=== PATIENT | female | born 1960 | race Caucasian/White ===

== ENCOUNTER 2018-03-27 05:35 | Outpatient (CLI) | payer BC ==
[~2018-03-27] VITALS: Ht 170.2 cm; Wt 72.6 kg
[~2018-03-27 05:35] MED LIST: ASP325TEC PO; CARI350T27 PO; CEFD300C16 PO; CEFD300C3 PO; CRS350T PO; ESTERIFIED ESTROGENS PO; ESTR-19 PO; ESTROGEN; FLC100T1 PO; GABA800T2; LEVO750T24 PO; LISI1TAB PO; LISINIPRIL; LVT.025T PO; LVT.15T PO; METF500T8 PO; METHYLTESTOSTERONE PO; ONDN4T PO; OX05NA15; OXC5T PO; PRD20T PO; THYROID MED; TRAM50TA2 PO
[2018-03-27] MEDS ORDERED: METF850T2 PO (15:32)
[2018-03-27] MEDS ORDERED: LISI10TA2 PO (15:32)
[2018-03-27] MEDS ORDERED: OXYC-529 PO (15:32)
[2018-03-27] MEDS ORDERED: ESTR-19 PO (15:32)
[2018-03-27] MEDS ORDERED: DIAZ5TAB3 PO (15:32)
== END 2018-03-27 15:33 | disposition home or self-care (01) ==
LOC: PREOP 05:35
PROVIDERS: ATTEND Surgery
DX: Z01.818 Encounter for other preprocedural examination (principal)

== ENCOUNTER 2018-08-25 21:24 | Emergency (ER) | payer BC ==
[~2018-08-25] VITALS: Ht 170.2 cm; Wt 77.1 kg
[~2018-08-25 21:24] MED LIST changes: +DIAZ5TAB3 PO; +LISI10TA2 PO; +METF-398 PO; +OXYC-529 PO
--- OUTSIDE RECORDS SUMMARY | 2018-08-25 21:31 | XMS REPORT | Continuity of Care Document ---
Author Author [facility] Organization [facility] Address Unknown Phone Unavailable Allergies Active Description Code Type Severity Reaction Onset Reported/Identified Relationship to Patient Clinical Status Yes codeine [id number] Drug Allergy Mild NAUSEA 08/13/2012 Medications There is no data. Problems Date Dx Coded Attending Type Code Diagnosis Diagnosed By 08/14/2012 Ot 244.9 HYPOTHYROIDISM NOS 08/14/2012 Ot 250.00 DIAB MARIPOSA WO COMPL, TYPE II OR UNSPEC TY 08/14/2012 Ot 276.1 HYPOSMOLALITY 08/14/2012 Ot 276.8 HYPOPOTASSEMIA 08/14/2012 Ot 401.9 HYPERTENSION NOS 08/14/2012 Ot 590.10 AC PYELONEPHRITIS NOS 08/14/2012 Ot 722.52 LUMB/ LUMBOSAC DISC DEGEN 08/14/2012 Ot 784.0 HEADACHE 08/28/2012 Ot 041.19 BACTERIAL INFECTION DUE TO OTHER STAPHYL 08/28/2012 Ot 079.99 VIRAL INFECTION NOS 08/28/2012 Ot 250.00 DIAB MARIPOSA WO COMPL, TYPE II OR UNSPEC TY 08/28/2012 Ot 401.9 HYPERTENSION NOS 08/28/2012 Ot 599.0 URIN TRACT INFECTION NOS 08/28/2012 Ot 726.90 ENTHESOPATHY , SITE NOS 08/28/2012 Ot 786.52 PAINFUL RESPIRATION 08/28/2012 Ot E930.8 ADV EFF ANTIBIOTICS NEC 10/13/2014 RHIANNON MCGINNIS Ot 461.9 ACUTE SINUSITIS NOS 10/13/2014 RHIANNON MCGINNIS Ot 784.0 HEADACHE 08/11/2015 RIKKI BUSTILLO, BRITTANY Martínez Ot Z12.31 01/14/2018 FERNANDO CESPEDES Ot 786.2 COUGH 01/14/2018 NEIL DOMINGUEZ DO Ot V76.12 OTH SCREEN MAMMO-MALIGN NEOPLASM OF [place]AN[place] 01/14/2018 BRITTANY BRANDT MD Ot Z12.31 ENCNTR SCREEN MAMMOGRAM FOR MALIGNANT NE 03/27/2018 ALECIAJAZMINEFERNANDO GUTIERREZ SOLID PLASTERER Ot 786.2 COUGH 03/27/2018 NEIL DOMINGUEZ DO Ot V76.12 OTH SCREEN MAMMO-MALIGN NEOPLASM OF [place]AN[place] 03/27/2018 RIKKI BUSTILLO, BRITTANY Martínez Ot Z12.31 ENCNTR SCREEN MAMMOGRAM FOR MALIGNANT NE 03/27/2018 DEIDRA ORTIZ DO Ot Z01.818 ENCOUNTER FOR OTHER PREPROCEDURAL EXAMIN 03/27/2018 ORTIZ DEIDRA YOON Ot Z01.818 ENCOUNTER FOR OTHER PREPROCEDURAL EXAMIN 03/27/2018 MIDDLETON DEIDRA YOON Ot Z01.818 ENCOUNTER FOR OTHER PREPROCEDURAL EXAMIN 04/03/2018 DEIDRA ORTIZ DO Ot D12.4 BENIGN NEOPLASM OF DESCENDING COLON 04/03/2018 DEIDRA ORTIZ DO Ot D12.5 BENIGN NEOPLASM OF SIGMOID COLON 04/03/2018 DEIDRA ORTIZ DO Ot I10 ESSENTIAL (PRIMARY) HYPERTENSION 04/03/2018 DEIDRA ORTIZ DO Ot K62.1 RECTAL POLYP 04/03/2018 DEIDRA ORTIZ DO Ot R73.03 PREDIABETES 04/03/2018 DEIDRA ORTIZ DO Ot Z12.11 ENCOUNTER FOR SCREENING FOR MALIGNANT NE 04/03/2018 DEIDRA ORTIZ DO Ot Z79.84 [facility] (CURRENT) USE OF ORAL HYPOGLYC 04/03/2018 DEIDRA ORTIZ DO Ot Z79.899 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 04/03/2018 DEIDRA ORTIZ DO Ot Z80.0 FAMILY HISTORY OF MALIGNANT NEOPLASM OF 04/09/2018 DEIDRA ORTIZ DO Ot D12.4 BENIGN NEOPLASM OF DESCENDING COLON 04/09/2018 DEIDRA ORTIZ DO Ot D12.5 BENIGN NEOPLASM OF SIGMOID COLON 04/09/2018 DEIDRA ORTIZ DO Ot I10 ESSENTIAL (PRIMARY) HYPERTENSION 04/09/2018 DEIDRA ORTIZ DO Ot K62.1 RECTAL POLYP 04/09/2018 DEIDRA ORTIZ DO Ot R73.03 PREDIABETES 04/09/2018 DEIDRA ORTIZ DO Ot Z12.11 ENCOUNTER FOR SCREENING FOR MALIGNANT NE 04/09/2018 DEIDRA ORTIZ DO Ot Z79.84 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 Results There is no data. Encounters ACCT No. Visit Date/Time Discharge Status Pt. Type Provider Facility Loc./Unit Complaint [id number] 04/03/2018 07:12:00 04/03/2018 10:00:00 DIS Outpatient DEIDRA ORTIZ DO [facility] ENDO SCREENING [id number] 03/27/2018 05:35:00 03/27/2018 15:33:00 DIS Outpatient DEIDRA ORTIZ DO [facility] PREOP COLONOSCOPY [id number] 07/28/2015 12:07:00 07/28/2015 23:59:59 CLS Outpatient BRITTANY BRANDT MD [facility] RAD SCREENING [id number] 10/13/2014 10:58:00 10/13/2014 15:50:00 DIS Emergency RHIANNON MCGINNIS [facility] ER SINUS PAIN PRESSURE [id number] 12/25/2013 14:40:00 12/25/2013 23:59:59 CLS Outpatient NEIL DOMINGUEZ DO [facility] RAD SCREENING [id number] 09/09/2013 11:48:00 09/09/2013 23:59:59 CLS Outpatient FERNANDO CESPEDES [facility] RAD COUGH [id number] 08/26/2012 03:55:00 Document Registration [id number] 08/13/2012 09:39:00 Document Registration
[2018-08-25] MEDS ORDERED: LACTATED RINGERS 1,000 ML IV ONE (21:33)
[2018-08-25 21:58] LABS: BASOPHILS # (AUTO) 0.1 10^3/uL (0.0-0.1); BASOPHILS % (AUTO) 1 % (0-10); EOSINOPHILS # (AUTO) 0.1 10^3/uL (0.0-0.3); EOSINOPHILS % (AUTO) 1 % (0-10); HEMATOCRIT 41 % (35-52); HEMOGLOBIN 13.5 G/DL (11.5-16.0); LYMPHOCYTES # (AUTO) 3.3 X 10^3 (1.0-4.0); LYMPHOCYTES % (AUTO) 35 % (12-44); MEAN CORPUSCULAR HEMOGLOBIN 29 PG (25-34); MEAN CORPUSCULAR HGB CONC 33 G/DL (32-36); MEAN CORPUSCULAR VOLUME 88 FL (80-99); MEAN PLATELET VOLUME 9.3 FL (7.4-10.4); MONOCYTES # (AUTO) 0.6 X 10^3 (0.0-1.0); MONOCYTES % (AUTO) 6 % (0-12); NEUTROPHILS # (AUTO) 5.4 X 10^3 (1.8-7.8); NEUTROPHILS % (AUTO) 57 % (42-75); PLATELET COUNT 346 10^3/uL (130-400); RED BLOOD COUNT 4.68 10^6/uL (4.35-5.85); RED CELL DISTRIBUTION WIDTH 12.7 % (10.0-14.5); WHITE BLOOD COUNT 9.5 10^3/uL (4.3-11.0)
[2018-08-25 22:04] VITALS: BP_SYST 117; BP_SYST 121; BP_SYST 125; BP_DIAS 70; BP_DIAS 72; BP_DIAS 78
[2018-08-25 22:05] LABS: BILIRUBIN,URINE NEGATIVE (NEGATIVE); CLARITY,URINE CLEAR; COLOR,URINE YELLOW; GLUCOSE, URINE (UA) NEGATIVE (NEGATIVE); KETONES,URINE NEGATIVE (NEGATIVE); LEUKOCYTE ESTERASE ,URINE NEGATIVE (NEGATIVE); NITRITE,URINE NEGATIVE (NEGATIVE); PH,URINE 5 (5-9); PROTEIN,URINE 2+ (NEGATIVE); UROBILINOGEN,URINE NORMAL (NORMAL)
[2018-08-25 22:07] LABS: PROTHROMBIN TIME PATIENT 12.9 SEC (12.2-14.7)
[2018-08-25 22:16] LABS: AMPHETAMINE SCREEN, URINE NEGATIVE (NEGATIVE); BARBITURATE SCREEN URINE NEGATIVE (NEGATIVE); BENZODIAZEPINES SCREEN URINE NEGATIVE (NEGATIVE); CANNABINOID SCREEN, URINE POSITIVE (NEGATIVE); COCAINE SCREEN URINE NEGATIVE (NEGATIVE); METHADONE STAT NEGATIVE (NEGATIVE); METHAMPHETAMINE SCREEN URINE S NEGATIVE (NEGATIVE); OPIATE SCREEN URINE NEGATIVE (NEGATIVE); OXYCODONE STAT POSITIVE (NEGATIVE); PROPOXYPHENE STAT NEGATIVE (NEGATIVE); TRICYCLIC ANTIDEPRESSANTS SCRE POSITIVE (NEGATIVE)
[2018-08-25 22:19] LABS: ALANINE AMINOTRANSFERASE 32 U/L (0-55); ALBUMIN 4.9 GM/DL (3.2-4.5); ALKALINE PHOSPHATASE 47 U/L (40-136); BILIRUBIN,TOTAL 1.3 MG/DL (0.1-1.0); BUN/CREATININE RATIO 7; CALCIUM 9.9 MG/DL (8.5-10.1); CARBON DIOXIDE 25 MMOL/L (21-32); CHLORIDE 99 MMOL/L (98-107); CREATININE SERUM 0.99 MG/DL (0.60-1.30); GFR ESTIMATED 58; GLUCOSE 144 MG/DL (70-105); MAGNESIUM 2.1 MG/DL (1.8-2.4); POTASSIUM 3.4 MMOL/L (3.6-5.0); SODIUM 137 MMOL/L (135-145); TOTAL PROTEIN 7.6 GM/DL (6.4-8.2)
[2018-08-25 22:19] LABS: SQUAMOUS EPITHELIAL CELL,UR 0-2 /HPF
[2018-08-25 22:38] LABS: TSH (THYROID ANALYZER) 6.25 UIU/ML (0.35-4.94)
--- NOTE | 2018-08-25 22:39 | ED Syncope ---
General Chief Complaint: Dizziness/Syncope Stated Complaint: SYNCOPE Nursing Triage Note: Pt brought to ED via EMS. [place] and then passed out into boyfriend's lap. Pt denies hitting head or falling to floor. Pt reports having the flu last week, and has had N/D for a couple of days. Pt A&O x 4 upon arrival to ED. Allergies and Home Medications Allergies Coded Allergies: codeine (Verified Allergy, Mild, NAUSEA, 08/13/12) Home Medications Diazepam 5 Mg Tablet, 5 MG PO Q12H PRN for ANXIETY, (Reported) Estrogen,Kiera/Me-Testosterone 1 Each Tablet, 1 EACH PO DAILY, (Reported) Lisinopril 10 Mg Tablet, 5 MG PO DAILY, (Reported) take 1/2 of 10mg tab Metformin HCl 850 Mg Tablet, 850 MG PO DAILY, (Reported) Oxycodone HCl 5 Mg Tablet, 5 MG PO TID PRN for PAIN-MILD TO MODERATE, (Reported) Past Iwxsxni-Tymikx-Vobdtg Hx Patient Social History Alcohol Use: Occasionally Uses Number of Drinks Today: AA Alcohol Beverage of Choice: Beer Recreational Drug Use: No 2nd Hand Smoke Exposure: No Recent Foreign Travel: No Contact w/Someone Who Travel: No Recent Infectious Disease Expo: No Recent Hopitalizations: No Physical Abuse: No Sexual Abuse: No Immunizations Up To Date Tetanus Booster (TDap): Unknown Seasonal Allergies Seasonal Allergies: No Past Medical History Surgeries: Yes (SPINAL FUSION X2, C/S X2, TUMMY TUCK, BREAST REDUCTION) Appendectomy, Section, Hysterectomy Respiratory: No Currently Using CPAP: No Currently Using BIPAP: No Cardiac: Yes Hypertension Neurological: No Reproductive Disorders: No 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 0.0oz. 77.914278hd; 25.1 BMI Method:Stated Focused Exam Lactate Level 08/25/18 21:45: Lactic Acid Level 2.24*H Lactic Acid Level Laboratory Tests Test 08/25/18 21:45 Lactic Acid Level 2.24 MMOL/L (0.50-2.00) *H Progress/Results/Core Measures Results/Orders Lab Results Laboratory Tests Test 08/25/18 21:45 08/25/18 21:57 08/25/18 22:27 Range/Units White Blood Count 9.5 4.3-11.0 10^3/uL Red Blood Count 4.68 4.35-5.85 10^6/uL Hemoglobin 13.5 11.5-16.0 G/DL Hematocrit 41 35-52 % Mean Corpuscular Volume 88 80-99 FL Mean Corpuscular Hemoglobin 29 25-34 PG Mean Corpuscular Hemoglobin Concent 33 32-36 G/DL Red Cell Distribution Width 12.7 10.0-14.5 % Platelet Count 346 130-400 10^3/uL Mean Platelet Volume 9.3 7.4-10.4 FL Neutrophils (%) (Auto) 57 42-75 % Lymphocytes (%) (Auto) 35 12-44 % Monocytes (%) (Auto) 6 0-12 % Eosinophils (%) (Auto) 1 0-10 % Basophils (%) (Auto) 1 0-10 % Neutrophils # (Auto) 5.4 1.8-7.8 X 10^3 Lymphocytes # (Auto) 3.3 1.0-4.0 X 10^3 Monocytes # (Auto) 0.6 0.0-1.0 X 10^3 Eosinophils # (Auto) 0.1 0.0-0.3 10^3/uL Basophils # (Auto) 0.1 0.0-0.1 10^3/uL Prothrombin Time 12.9 12.2-14.7 SEC INR Comment 1.0 0.8-1.4 Activated Partial Thromboplast Time 30 24-35 SEC Sodium Level 137 135-145 MMOL/L Potassium Level 3.4 L 3.6-5.0 MMOL/L Chloride Level 99 98-107 MMOL/L Carbon Dioxide Level 25 21-32 MMOL/L Anion Gap 13 5-14 MMOL/L Blood Urea Nitrogen 7 7-18 MG/DL Creatinine 0.99 0.60-1.30 MG/DL Estimat Glomerular Filtration Rate 58 BUN/Creatinine Ratio 7 Glucose Level 144 H 70-105 MG/DL Lactic Acid Level 2.24 *H 0.50-2.00 MMOL/L Calcium Level 9.9 8.5-10.1 MG/DL Corrected Calcium 8.5-10.1 MG/DL Magnesium Level 2.1 1.8-2.4 MG/DL Total Bilirubin 1.3 H 0.1-1.0 MG/DL Aspartate Amino Transf (AST/SGOT) 31 5-34 U/L Alanine Aminotransferase (ALT/SGPT) 32 0-55 U/L Alkaline Phosphatase 47 40-136 U/L Troponin I < 0.30 <0.30 NG/ML Total Protein 7.6 6.4-8.2 GM/DL Albumin 4.9 H 3.2-4.5 GM/DL TSH [place] Testing 6.25 H 0.35-4.94 UIU/ML Serum Alcohol < 10 <10 MG/DL Urine Color YELLOW Urine Clarity CLEAR Urine pH 5 5-9 Urine Specific [place] 1.015 L 1.016-1.022 Urine Protein 2+ H NEGATIVE Urine Glucose (UA) NEGATIVE NEGATIVE Urine Ketones NEGATIVE NEGATIVE Urine Nitrite NEGATIVE NEGATIVE Urine Bilirubin NEGATIVE NEGATIVE Urine Urobilinogen NORMAL NORMAL MG/DL Urine Leukocyte Esterase NEGATIVE NEGATIVE Urine RBC (Auto) NEGATIVE NEGATIVE Urine RBC NONE /HPF Urine WBC NONE /HPF Urine Squamous Epithelial Cells 0-2 /HPF Urine Crystals NONE /LPF Urine Bacteria NONE /HPF Urine Casts NONE /LPF Urine Mucus NEGATIVE /LPF Urine Culture Indicated NO Urine Opiates Screen NEGATIVE NEGATIVE Urine Oxycodone Screen POSITIVE H NEGATIVE Urine Methadone Screen NEGATIVE NEGATIVE Urine Propoxyphene Screen NEGATIVE NEGATIVE Urine Barbiturates Screen NEGATIVE NEGATIVE Ur Tricyclic Antidepressants Screen POSITIVE H NEGATIVE Urine Phencyclidine Screen NEGATIVE NEGATIVE Urine Amphetamines Screen NEGATIVE NEGATIVE Urine Methamphetamines Screen NEGATIVE NEGATIVE Urine Benzodiazepines Screen NEGATIVE NEGATIVE Urine Cocaine Screen NEGATIVE NEGATIVE Urine Cannabinoids Screen POSITIVE H NEGATIVE Glucometer 125 H 70-110 MG/DL Micro Results Microbiology 08/25/18 Influenza Types A,B Antigen (JESSICA) - Final, Complete My Orders Orders - JAYMIE HENDRICKS DO Accucheck Stat ONCE (08/25/18 21:33) Saline Lock/Iv-Start (08/25/18 21:33) Ekg Tracing (08/25/18 21:33) Monitor-Rhythm Ecg Trace Only (08/25/18 21:33) Orthostatic Vital Signs (Adult (08/25/18 21:33) Ct Head Wo-R/O Stroke (08/25/18 21:33) Alcohol (08/25/18 21:33) Cbc With Automated Diff (08/25/18 21:33) Comprehensive Metabolic Panel (08/25/18 21:33) Drug Screen Stat (Urine) (08/25/18 21:33) Lactic Acid Analyzer (08/25/18 21:33) Magnesium (08/25/18 21:33) Protime With Inr (08/25/18 21:33) Partial Thromboplastin Time (08/25/18 21:33) Thyroid Analyzer (08/25/18 21:33) Troponin I (08/25/18 21:33) Ua Culture If Indicated (08/25/18 21:33) Blood Culture (08/25/18 21:33) Influenza A And B Antigens (08/25/18 21:33) Chest 1 View, Ap/Pa Only (08/25/18 21:33) Saline Lock/Iv-Start (08/25/18 21:33) Lactated Ringers (Lr 1000 Ml Iv Solution (08/25/18 21:33) Free T4 (Free Thyroxine) (08/25/18 21:45) Medications Given in ED Current Medications Medications Dose Ordered Sig/Sania Route Start Time Stop Time Status Last Admin Dose Admin Lactated Ringer's 1,000 ml @ 0 mls/hr Q0M ONCE IV 08/25/18 21:33 08/25/18 21:36 DC 08/25/18 21:55 1,000 MLS/HR Vital Signs/I&O 08/25/18 08/25/18 21:25 22:04 Temp 97.1 Pulse 63 60 61 64 Resp 16 B/P (MAP) 133/71 (91) 121/70 (87) 125/78 (94) 117/72 (87) Pulse Ox 97 O2 Delivery Room Air Blood Pressure Mean: 87 FSBG Bedside Testing Finger Stick Blood Glucose: 125 Blood Glucose Action Taken: RN Notified Diagnostic Imaging Comments CT HEAD--NO ACUTE PROCESS, PER [facility] RADIOLOGIST VIA PHONE AT [id number] Reviewed: Reviewed by Me Departure Impression Primary Impression: SYNCOPAL EPISODE Additional Impressions: Bilateral serous otitis media Viral URI Elevated TSH Disposition: 01 HOME, SELF-CARE Condition: Improved Departure-Patient Inst. Referrals: BRITTANY BRANDT MD (PCP) Primary Care Physician Patient Instructions: Hypothyroidism (Underactive Thyroid) (DC), Serous Otitis Media (DC), Syncope (Fainting) (DC), Viral Upper Respiratory Infection, Adult ( DC) Add. Discharge Instructions: LOTS OF FLUIDS OVER THE COUNTER MEDICATIONS FOR CONGESTION AND DRAINAGE SLOW POSITION CHANGES FOLLOW UP WITH YOUR DR ON MONDAY FOR FURTHER CARE RETURN TO ER IF SYMPTOMS RETURN OR WORSEN All discharge instructions reviewed with patient and/or family. Voiced understanding. JAYMIE HENDRICKS DO Aug 25, 2018 22:39
[2018-08-25 23:37] VITALS: BP 114/87
--- NOTE | 2018-08-26 08:14 | Diagnostic Imaging Report ---
EXAMINATION: Chest radiograph, portable AP view. DATE: August 25, 2018 at 2240 hours. INDICATION: 57-year-old female, syncope. COMPARISON: September 09, 2013. FINDINGS: There is cervical spinal hardware. Heart size and mediastinal contours are unremarkable. There is no identified pneumothorax. There is no large pleural effusion. There is no identified focal airspace consolidation. IMPRESSION: No identified acute cardiopulmonary abnormality. Dictated by: Dictated on workstation # [id number]
--- NOTE | 2018-08-26 08:17 | Diagnostic Imaging Report ---
PROCEDURE: CT head wo r/o stroke. TECHNIQUE: Multiple contiguous axial images were obtained through the brain without the use of intravenous contrast. DATE: August 25, 2018. COMPARISON: CT head and maxillofacial area October 13, 2014. INDICATION: 57-year-old female, syncope. FINDINGS: There is a small amount of fluid attenuation layering within the right maxillary sinus. Mastoid air cells and middle ears are well aerated bilaterally. The ventricles and cerebral spinal fluid spaces are of normal size and configuration for the patient's age. There is no mass effect or midline shift. There is no acute intracranial hemorrhage. There is no abnormal extra-axial fluid collection. IMPRESSION: 1. No identified acute intracranial abnormality. 2. Small amount of fluid layering within the right maxillary sinus potentially reflecting acute sinusitis. Recommend correlation clinically. Dictated by: Dictated on workstation # [id number]
== END 2018-08-25 23:37 | disposition home or self-care (01) ==
LOC: EDUNIT# 21:24 → ER 21:25
DX: R55 Syncope and collapse (principal); J06.9 Acute upper respiratory infection, unspecified; H65.93 Unspecified nonsuppurative otitis media, bilateral; B96.89 Other specified bacterial agents as the cause of diseases classified elsewhere; R94.6 Abnormal results of thyroid function studies; I10 Essential (primary) hypertension; Z88.5 Allergy status to narcotic agent; Z79.84 Long term (current) use of oral hypoglycemic drugs; Z98.1 Arthrodesis status; Z98.890 Other specified postprocedural states; Z90.710 Acquired absence of both cervix and uterus
CPT/HCPCS: 36415; 70450; 71045; 80053; 80306; 80320; 81000; 82962; 83605; 83735; 84439; 84443; 84484; 85025; 85610; 85730; 87040; 87804; 93005; 93041

== ENCOUNTER → 2018-12-11 | Outpatient (CLI) | payer BC ==
--- NOTE | 2018-12-11 17:18 | Diagnostic Imaging Report ---
PROCEDURE: MRI lumbar spine. INDICATION: Low back pain, bilateral leg pain. History of lumbar spine surgery in 2000.. TECHNIQUE: Multiplanar and multisequence noncontrast magnetic resonance imagine was performed of the lumbar spine. CORRELATION STUDY: None FINDINGS: Surgical changes with decompressive laminectomy and posterior fusion at L4-L5 level. Intervertebral disc spacer device is present. There appears to be normal alignment of the lumbar spine apart from slight straightening. Slight loss of height superiorly at the L2 level has a nonacute appearance. No significant compression deformity with overall loss of vertebral body height in the lumbar spine. No concerning geographic lesion. The conus appears unremarkable. L5-S1: Mild/moderate loss of disc space height. Asymmetric disc osteophyte formation presence which does result in bilateral foraminal narrowing. Slight flattening of the exiting nerve roots. Spinal canal without significant stenosis. L4-L5: Posterior fusion is noted. There is fusion across the disc space. Spinal canal is decompressed with laminectomy. The neural foramina also appears to be fairly well-maintained. There is perhaps minimal effacement of the left perineural fat without significant nerve impingement. L3-L4: There is ligamentum/facet hypertrophy with resultant trefoil type spinal canal narrowing. Slight asymmetric narrowing along the left aspect. There is loss of height at the disc space. Disc and osteophyte formation does result in bilateral foraminal narrowing, slightly greater on the left. There does appear to be slightly extruded disc extending along the midline. L2-L3: Fairly good preservation of the disc space height. No significant canal or foraminal narrowing. L1-L2: Unremarkable. T2 hyperintense mass left kidney anteriorly favors a cyst. Slight prominent appearance about the left renal pelvis without hydronephrosis. Hepatomegaly appears to be present. IMPRESSION: 1. L4-L5 lumbar spinal fusion with apparent fusion across the disc space. The canal and foramina are fairly-well decompressed. 2. Moderate trefoil type spinal canal narrowing as well as bilateral foraminal narrowing at L3-L4 level, a level above the fusion. This appears to be owing to ligamentum facet hypertrophy but also with disc bulge and slight disc protrusion. 2. Bilateral foraminal narrowing at L5-S1 level owing to disc/osteophyte formation. Slight flattening of the exiting nerve roots. Report faxed to LISETH Anguiano, at 5:05 p.m. 12/11/2018/enoch Dictated by: Dictated on workstation # [id number]
== END ==
LOC: RAD 13:44
PROVIDERS: ATTEND Nurse Practitioner
DX: M51.17 Intervertebral disc disorders with radiculopathy, lumbosacral region (principal); M25.78 Osteophyte, vertebrae; M48.07 Spinal stenosis, lumbosacral region; N28.89 Other specified disorders of kidney and ureter; Z98.1 Arthrodesis status
CPT/HCPCS: 72148

== ENCOUNTER → 2019-02-26 | Outpatient (CLI) | payer BC ==
[2019-02-26 13:36] LABS: BUN/CREATININE RATIO 11; CREATININE SERUM 0.76 MG/DL (0.60-1.30); GFR ESTIMATED > 60
--- NOTE | 2019-02-26 15:32 | Diagnostic Imaging Report ---
PROCEDURE: CT abdomen and pelvis with and without contrast. TECHNIQUE: Precontrast acquisitions were acquired through the abdomen and pelvis. Multiple contiguous axial images were obtained through the abdomen and pelvis after the administration of intravenous contrast. Auto Exposure Controls were utilized during the CT exam to meet ALARA standards for radiation dose reduction. INDICATION: Right lower quadrant abdominal pain. COMPARISON: None available. FINDINGS: The visualized lung bases are clear. Diffusely decreased density of the liver is present, consistent with fatty infiltration of the liver. No focal hepatic mass. The spleen is unremarkable. The adrenal glands are unremarkable. The pancreas is unremarkable. Cholecystectomy. The right kidney and right ureter are unremarkable. Nonenhancing 2.1 cm hypodensity is identified within the anterior aspect of the left mid kidney, consistent with a benign cyst. The left kidney and left ureter are otherwise unremarkable. Minimal scattered vascular calcifications without aneurysmal dilatation of the abdominal aorta. The urinary bladder is unremarkable. The uterus is not visualized, likely surgically absent. No abnormal adnexal mass lesion. The appendix is not definitely seen, though there are no secondary signs of acute appendicitis. No bowel obstruction or pneumatosis. Minimal colonic diverticulosis without CT evidence of diverticulitis. No significant adenopathy, free air, or free fluid within the abdomen or pelvis. Postsurgical changes within the lumbar spine without acute osseous abnormality. Scattered osseous degenerative changes with multilevel prominent anterior osteophytes within the thoracolumbar spine. There is bilateral neural foraminal stenosis at L3-L4. IMPRESSION: 1. Minimal colonic diverticulosis without CT evidence of diverticulitis. 2. Fatty infiltration of the liver. 3. Cholecystectomy. 4. Left renal cyst. 5. Additional postsurgical and chronic findings as described above. The appendix was not definitely seen, though there are no secondary signs of acute appendicitis within the right lower quadrant. Dictated by: Dictated on workstation # [id number]
== END ==
LOC: RAD 12:53
PROVIDERS: ATTEND Nurse Practitioner
DX: K76.0 Fatty (change of) liver, not elsewhere classified (principal); N28.1 Cyst of kidney, acquired; E11.9 Type 2 diabetes mellitus without complications; M47.815 Spondylosis without myelopathy or radiculopathy, thoracolumbar region; M25.78 Osteophyte, vertebrae; M48.061 Spinal stenosis, lumbar region without neurogenic claudication; Z90.49 Acquired absence of other specified parts of digestive tract
CPT/HCPCS: 36415; 74178; 82565; 84520

== ENCOUNTER → 2019-03-26 | Outpatient (CLI) | payer BC | LOC: RAD 08:21 | PROVIDERS: ATTEND Nurse Practitioner | DX: Z12.31 Encounter for screening mammogram for malignant neoplasm of breast (principal); Z53.8 Procedure and treatment not carried out for other reasons ==

== ENCOUNTER → 2019-04-03 | Outpatient (CLI) | payer BC ==
--- NOTE | 2019-04-03 14:20 | Diagnostic Imaging Report ---
Indication: Status post breast reduction surgery last year. Patient reports having severe bruising in the left breast following surgery. Patient now reports a lump in the left breast. Correlation is made with prior mammogram from 09/07/2016 and 07/28/2015. 2-D and 3-D bilateral diagnostic mammography was performed with CAD. Scattered fibroglandular densities are identified bilaterally. Since prior imaging patient's undergone breast reduction surgery. No mass or malignant appearing microcalcifications are seen. There are scattered benign calcifications. Axillae are unremarkable. Impression: BI-RADS zero No mammographic features suspicious for malignancy are identified. Patient is status post breast reduction surgery. Sonographic interrogation of the area of palpable abnormality in the left breast is recommended and will be performed today. ACR BI-RADS Category 0: Incomplete. (Needs additional imaging evaluation). Result letter will be mailed to the patient. Note: At least 10% of breast cancer is not imaged by mammography. Dictated by: Dictated on workstation # [id number]
--- NOTE | 2019-04-03 15:18 | Diagnostic Imaging Report ---
INDICATION: Bilateral breast reduction one year ago. Patient has a palpable lump in the left breast. TECHNIQUE: Sonographic interrogation of the area of lump in the left breast was performed. FINDINGS: There is a simple cyst just below the skin surface at the 6 o'clock location 5 cm from the nipple. This measures 11 mm x 6 mm x 15 mm. No solid mass is identified. IMPRESSION: Simple cyst at the area of palpable abnormality in the 6 o'clock location. The patient may return to routine annual screening mammography. ACR BI-RADS Category 2: Benign findings. Dictated by: Dictated on workstation # [id number]
== END ==
LOC: RAD 13:26
PROVIDERS: ATTEND Nurse Practitioner
DX: N60.02 Solitary cyst of left breast (principal); N63.20 Unspecified lump in the left breast, unspecified quadrant; Z98.890 Other specified postprocedural states
CPT/HCPCS: 76642; 77066

== ENCOUNTER → 2021-07-23 | Outpatient (CLI) | payer BC ==
[~2021-07-23] MED LIST changes: -DIAZ5TAB3 PO; +DIAZ5TAB49 PO; -LISI10TA2 PO; +LISI10TA25 PO; -OXYC-529 PO
--- NOTE | 2021-07-23 15:47 | Diagnostic Imaging Report ---
INDICATION: Routine screening. COMPARISON is made with prior mammograms from 04/03/2019 and 09/07/2016. 2-D and 3-D bilateral screening mammography was performed with CAD. Scattered fibroglandular densities are identified bilaterally. The parenchymal pattern is stable. There are scattered benign calcifications. No mass or malignant-appearing microcalcifications are seen. Axillae are unremarkable. IMPRESSION: BI-RADS Category 2 No mammographic features suspicious for malignancy are identified. ACR BI-RADS Category 2: Benign findings. Result letter will be mailed to the patient. Note: At least 10% of breast cancer is not imaged by mammography. Dictated by: Dictated on workstation # [id number]
== END ==
LOC: RAD 10:00
PROVIDERS: ATTEND Nurse Practitioner
DX: Z12.31 Encounter for screening mammogram for malignant neoplasm of breast (principal)
CPT/HCPCS: 77063; 77067

== ENCOUNTER → 2022-01-21 | Outpatient (CLI) | payer BC ==
--- NOTE | 2022-01-21 11:35 | Diagnostic Imaging Report ---
PROCEDURE: MRI lumbar spine. TECHNIQUE: Multiplanar, multisequence MRI of the lumbar spine was performed without contrast. INDICATION: Low back pain. Lumbar spine fusion. COMPARISON: MRI lumbar spine from 12/11/2018. FINDINGS: There are five lumbar-type vertebral bodies for the purposes of this report. Normal alignment. Vertebral body heights are preserved. There are postoperative findings of bilateral rods and pedicle screw fixation with interbody fusion at L4-L5. L4 laminectomy. No abnormal signal in the conus which terminates at L1. Normal morphology of the cauda equina. The visualized pelvis and paravertebral soft tissues are unremarkable. L1-L2: Mild facet arthropathy. No spinal canal, lateral recess or neural foraminal narrowing. L2-L3: Moderate facet arthropathy and ligamentous hypertrophy. No spinal canal or lateral recess narrowing. Moderate left and mild right neural foraminal narrowing. L3-L4: Increasing central disc extrusion with inferior migration combines with ligamentous hypertrophy and facet arthropathy to result in [id number] spinal canal stenosis. Severe bilateral neural foraminal narrowing has also progressed. L4-L5: Spinal canal is decompressed well. Mild left neural foraminal narrowing. L5-S1: Moderate facet arthropathy. No spinal canal or lateral recess narrowing. Disc space height loss also contributes to severe bilateral neural foraminal narrowing, similar to the prior exam. IMPRESSION: 1. Posterior instrumentation and interbody fusion at L4-L5 with an L4 laminectomy. 2. Central disc extrusion with inferior migration at L3-L4 has progressed since the prior exam. This combines with ligamentous hypertrophy and facet arthropathy to result in ehwqiqgi-[id number] spinal canal stenosis. 3. Multilevel high-grade neural foraminal narrowing, detailed above level by level. Dictated by: Dictated on workstation # [id number]
== END ==
LOC: RAD 08:45
PROVIDERS: ATTEND Nurse Practitioner
DX: M47.816 Spondylosis without myelopathy or radiculopathy, lumbar region (principal); M47.817 Spondylosis without myelopathy or radiculopathy, lumbosacral region; M51.26 Other intervertebral disc displacement, lumbar region; M51.37 Other intervertebral disc degeneration, lumbosacral region; M48.061 Spinal stenosis, lumbar region without neurogenic claudication; M48.02 Spinal stenosis, cervical region; M24.28 Disorder of ligament, vertebrae; Z98.1 Arthrodesis status
CPT/HCPCS: 72148

== ENCOUNTER → 2022-11-15 | Outpatient (CLI) | payer BC ==
--- NOTE | 2022-11-15 16:14 | Diagnostic Imaging Report ---
INDICATION: Routine screening. COMPARISON: 07/23/2021 and 04/03/2019. TECHNIQUE: 2D and 3D bilateral screening mammography was performed with CAD. FINDINGS: Scattered fibroglandular densities are identified bilaterally. The breast parenchymal pattern is stable. No new mass or malignant-appearing microcalcifications are seen. There are benign calcifications present. The axillae are unremarkable. IMPRESSION: No mammographic features suspicious for malignancy are identified. ACR BI-RADS Category 2: Benign findings. Result letter will be mailed to the patient. Note: At least 10% of breast cancer is not imaged by mammography. Dictated by: Dictated on workstation # [id number]
== END ==
LOC: RAD 09:45
PROVIDERS: ATTEND Nurse Practitioner
DX: Z12.31 Encounter for screening mammogram for malignant neoplasm of breast (principal)
CPT/HCPCS: 77063; 77067

== ENCOUNTER 2023-03-07 16:42 | Emergency (ER) | payer BC ==
[~2023-03-07] VITALS: Ht 170 cm; Wt 79.3 kg
[2023-03-07] MEDS ORDERED: ORPH100T3 (17:06)
[2023-03-07] MEDS ORDERED: ICOS1CAP PO (17:06)
[2023-03-07] MEDS ORDERED: MELO7.5T46 PO (17:07)
[2023-03-07] MEDS ORDERED: KETOROLAC 30 MG/ML VIAL IVP ONE (17:30)
[2023-03-07] MEDS ORDERED: methylPREDNISolone 125 MG (Solu-MEDROL) VIAL IVP ONE (17:30)
[2023-03-07] MEDS ORDERED: fentaNYL INJ 100 MCG/2 ML AMP IVP STA ×2 (17:31→18:40)
--- NOTE | 2023-03-07 17:35 | ED Back Pain ---
General Chief Complaint: Back Problems Stated Complaint: BACK PAIN Nursing Triage Note: PT PRESENTS TO ED VIA POV FROM HOME WITH COMPLAINTS OF BACK PAIN STARTING ON MONDAY, THAT HAS PROGRESSIVELY GOTTEN WORSE. PT REPORTS SHE DID A LOT OF CAR RIDING LAST WEEK THAT MAY HAVE AGGRIVATED IT. Source of Information: Patient Exam Limitations: No Limitations History of Present Illness Date Seen by Provider: March 07, 2023 Time Seen by Provider: 17:32 Initial Comments Patient is a 62-year-old female presents ED with lower back pain. Pain started last Monday. Sharp pain that shoots down into her legs bilateral. Pain is worse on the right. Patient states she has a history of spinal fusion in her neck and lower back. She was scheduled for surgery on the for her DJD but due to insurance purposes she was not able to get surgery. She has had spinal fusion performed by Dr. Thomas at [facility] in the past. She states pain became worse on Monday. Every time she bears weight pain shoots down into her legs. She denies of any bowel or urine incontinence or saddle paresthesia. Patient states she has oxycodone at home which she has been taking without much improvement. Attempted to see her primary care physician and was not able to get seen today. She states [place] went [place] this [place] was hard to get around secondary to the pain. History of similiar pain but worse since Monday. Denies fever, chills, bowel or urine incontinence, lower extremity weakness, abdominal pain, headache, dizziness, chest pain, cough Allergies and Home Medications Allergies Coded Allergies: codeine (Verified Allergy, Mild, NAUSEA, 08/13/12) levofloxacin (Verified Allergy, Unknown, 03/07/23) Patient Home Medication List Home Medication List Reviewed: Yes Diazepam (Diazepam) 5 Mg Tablet, 5 MG PO Q12H PRN for ANXIETY, (Reported) Entered as Reported by: PAULIE SANDY on 03/27/181531 Estrogen,Kiera/Me-Testosterone (Estrogen-Methyltestosterone Tb) 1 Each Tablet, 1 EACH PO DAILY, (Reported) Entered as Reported by: PAULIE SANDY on 03/27/181531 Icosapent Ethyl (Vascepa) 1 Gram Capsule, 1 GM PO BID, (Reported) Entered as Reported by: LATOSHA ARSHAD on 03/07/23 1706 Last Action: New Order Lisinopril (Lisinopril) 10 Mg Tablet, 10 MG PO BID, (Reported) Entered as Reported by: PAULIE SANDY on 03/27/181531 Last Action: Edited Meloxicam (Meloxicam) 7.5 Mg Tablet, 7.5 MG PO, (Reported) Entered as Reported by: LATOSHA ARSHAD on 03/07/231706 Last Action: New Order Metformin HCl (Metformin HCl) 850 Mg Tablet, 850 MG PO DAILY, (Reported) Entered as Reported by: PAULIE SANDY on 03/27/181531 Methylprednisolone (Methylprednisolone Dose Pack) 4 Mg Tab.ds.pk, 4 MG PO UD Prescribed by: NELLY VEGAS on 03/07/23 184 Orphenadrine Citrate (Orphenadrine Citrate) 100 Mg Tablet.er, (Reported) Entered as Reported by: LATOSHA ARSHAD on 03/07/231705 Last Action: New Order Oxycodone Hcl (Oxyir Tablet) 5 Mg Tablet, 5 MG PO TID PRN for PAIN-MILD TO MODERATE, (Reported) Entered as Reported by: PAULIE SANDY on 03/27/181531 Review of Systems Constitutional: No chills, No diaphoresis, No malaise, No weakness EENTM: No hearing loss, No ear pain, No blurred vision, No double vision Respiratory: No cough, No dyspnea on exertion Cardiovascular: No chest pain, No edema Gastrointestinal: No abdominal pain, No diarrhea, No nausea, No vomiting Genitourinary: No decreased output, No discharge Musculoskeletal: back pain, joint pain, muscle pain Skin: No change in color All Other Systems Reviewed Negative Unless Noted: Yes Past Aqbnjun-Xwedqx-Qtfgzj Hx Patient Social History Tobacco Use?: No Substance use?: No Alcohol Use?: No Pt feels they are or have been: No Immunizations Up To Date Tetanus Booster (TDap): Unknown First/Initial COVID19 Vaccinat: YES Second COVID19 Vaccination Madhu: YES Seasonal Allergies Seasonal Allergies: No Past Medical History Surgery/Hospitalization HX: PMH: DEG DISK DISEASE, DM, HTN, CHRONIC BACK PAIN Surgeries: Yes (CERVICAL SPINAL FUSION X2, C/S X2, TUMMY TUCK, BREAST REDUCTION; HYST/BSO) Appendectomy, Section, Hysterectomy, Oophorectomy, Orthopedic Respiratory: No Currently Using CPAP: No Currently Using BIPAP: No Cardiac: Yes High Cholesterol, Hypertension Neurological: No Reproductive Disorders: No 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 0.0oz. 77.952620my; 27.00 BMI Method:Stated General Appearance: No Apparent Distress, WD/WN HEENT: PERRL/EOMI, TMs Normal, Normal ENT Inspection, Pharynx Normal Neck: Full Range of Motion, Normal Inspection, Non Tender, Supple Cardiovascular: Regular Rate, Rhythm, No Edema, No Gallop, No JVD Respiratory: Chest Non Tender, Lungs Clear, Normal Breath Sounds, No Accessory Muscle Use, No Respiratory Distress Gastrointestinal: Normal Bowel Sounds, No Organomegaly, No Pulsatile Mass, Non Tender Back: Vertebral Tenderness (Lumbar midline tenderness) Extremity: Normal Capillary Refill, Normal Inspection, Normal Range of Motion, Non Tender Neurologic/Psychiatric: Alert, Oriented x3, No Motor/Sensory Deficits, Normal 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, 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 Norm as Tested Progress/Results/Core Measures Results/Orders My Orders Orders - ABDIFATAH FRAGA Ketorolac Injection (Toradol Injection) (03/07/23 17:30) Methylprednisolone Sod Succ (Solu-Medrol (03/07/23 17:30) Fentanyl Inj (Sublimaze Injection) (03/07/23 17:31) Iv/Invasive Line Insertion .IV INSERT (03/07/23 17:43) Fentanyl Inj (Sublimaze Injection) (03/07/23 18:40) Medications Given in ED Current Medications Medications Dose Ordered Sig/Sania Route Start Time Stop Time Status Last Admin Dose Admin Ketorolac Tromethamine 30 mg ONCE ONCE IVP 03/07/23 17:30 03/07/23 17:32 DC 03/07/23 17:48 30 MG Methylprednisolone Sodium Succinate 125 mg ONCE ONCE IVP 03/07/23 17:30 03/07/23 17:32 DC 03/07/23 17:48 125 MG Vital Signs/I&O 03/07/23 03/07/23 16:57 18:48 Temp 36.6 Pulse 77 78 Resp 18 18 B/P (MAP) 158/81 (106) 150/78 Pulse Ox 96 96 Blood Pressure Mean: 106 Departure Communication (PCP) Patient presents ED with low back pain. History of chronic back pain. Exacerba ting pain started last Monday. No specific injury. Worsening pain over the past 2 or 3 days. Patient Went to the [place] and states she did ride in a car for a peiod of time. Patient Was not able to do much over the weekend. She has no neurological red flag findings such as bowel or urine incontinence or saddle paresthesia. Pain radiating down into her feet. No weakness noted. Neurovascular intact. Afebrile. She does take oxycodone daily for pain. Started a IV and provided dose of fentanyl, Solu-Medrol and Toradol. Pain improved from 10 out of 10 to 4 out of 10. Received a second dose of Iv pain medication. Patient Was able to stand, bear weight and walk with improvement. She is scheduled follow-up with primary care physician tomorrow. Due to no neurological red flag findings would likely benefit with an MRI for further evaluation. Did discuss x-ray versus CT scan however would be limited secondary to no specific injury or trauma. Patient with a history of degenerative disc disease. Patient pain appears to be improving. Will discharge with a Medrol Dosepak. Continue with the oxycodone as needed. She does not appear toxic or septic. Return precaution were discussed such as bowel or urine incontinence, saddle paresthesia, lower extremity weakness. Impression Primary Impression: Low back pain Disposition: HOME, SELF-CARE Condition: Stable Departure-Patient Inst. Decision time for Depature: 18:40 Referrals: BRITTANY BRANDT MD (PCP/Family) Primary Care Physician Patient Instructions: Low back pain in adults Add. Discharge Instructions: Follow-up with your primary care physician tomorrow. Continue with your oxycodone as needed. Recommend rest. Need a MRI. If lower extremity muscle weakness, bowel or urine incontinence to return back to ED All discharge instructions reviewed with patient and/or family. Voiced understanding. Scripts Methylprednisolone (Methylprednisolone Dose Pack) 4 Mg Tab.ds.pk 4 MG PO UD for 6 Days, #21 PKG PER DOSE PACK INSTRUCTIONS Prov: ABDIFATHA FRAGA 03/07/23 ABDIFATAH FRAGA March 07, 2023 17:35
[2023-03-07] MEDS ORDERED: METH4TAB10 PO (18:41)
[2023-03-07 18:48] VITALS: BP 150/78
== END 2023-03-07 18:48 | disposition home or self-care (01) ==
LOC: EDUNIT# 16:42 → ER 16:43
DX: M54.50 Low back pain, unspecified (principal); Z87.39 Personal history of other diseases of the musculoskeletal system and connective tissue